=== PATIENT | male | born 2000 | race African-American/Black ===

== ENCOUNTER 2020-04-30 02:36 | Emergency (ER) | payer MEDICAID ==
[~2020-04-30] VITALS: Ht 175.3 cm; Wt 135.0 kg
[2020-04-30 02:39] VITALS: BP 157/83
== END 2020-04-30 04:15 | disposition home or self-care (01) ==
LOC: ER 02:36
DX: J34.0 Abscess, furuncle and carbuncle of nose (principal); J45.909 Unspecified asthma, uncomplicated
CPT/HCPCS: 70486; 99284

== ENCOUNTER 2022-10-17 09:01 | Emergency (ER) | payer MEDICAID ==
[~2022-10-17] VITALS: Ht 177.8 cm; Wt 129.0 kg
[2022-10-17 09:07] VITALS: BP 160/90
[2022-10-17] MEDS ORDERED: IBUP-2028 MT (09:48)
[2022-10-17] MEDS ORDERED: TOPUD PO (09:48)
[2022-10-17] MEDS ORDERED: AMOX-494 MT (09:48)
[2022-10-17] MEDS ORDERED: CARB15DR63 EACH EAR (09:48)
== END 2022-10-17 10:00 | disposition home or self-care (01) ==
LOC: ER 09:01
DX: H66.91 Otitis media, unspecified, right ear (principal); R53.81 Other malaise; R05.9 Cough, unspecified; J45.909 Unspecified asthma, uncomplicated
CPT/HCPCS: 87804; 99283

== ENCOUNTER 2022-10-30 06:42 | Emergency (ER) | payer MEDICAID ==
[~2022-10-30] VITALS: Ht 175.3 cm; Wt 175.6 kg
[~2022-10-30 06:42] MED LIST: AMOX-494 MT; CARB15DR63 EACH EAR; IBUP-2028 MT; TOPUD PO
[2022-10-30 06:55] VITALS: BP 152/73
[2022-10-30] MEDS ORDERED: CIPHCO RIGHT EAR (08:29)
== END 2022-10-30 08:59 | disposition home or self-care (01) ==
LOC: ER 06:42
DX: H60.91 Unspecified otitis externa, right ear (principal)
CPT/HCPCS: 99283